=== PATIENT | male | born 1945 | race Caucasian/White ===

== ENCOUNTER 2017-06-12 06:29 | Emergency (ER) | payer OTHER ==
[~2017-06-12] VITALS: Ht 180.3 cm; Wt 122.0 kg
[2017-06-12 06:34] VITALS: TEMP 36.4; Ht 180.3 cm; Wt 122.0 kg
[2017-06-12] MEDS ORDERED: SODIUM CHLORIDE 0.9% 1000ML 500 ML IV STA (06:47)
--- NOTE | 2017-06-12 07:00 | EMERGENCY ROOM VISIT NOTE ---
History Report prepared by Prema: Justine Quinones Under the Supervision of: Dr. Tree Lucio M.D. First contact with patient: 06:46 Chief Complaint: IRREGULAR HEARTBEAT Stated Complaint: RAPID AND IRREGULAR HEART BEAT History of Present Illness The patient is a 72 year old male who presents to the Emergency Room with complaints of a persistent irregular heartbeat that began one day ago. The patient reports that he was out visiting his daughter yesterday in [place] and states that he began noticing an increased heart rate and an irregular beat. He states that he had measured his rate at up to 150 beats per minute. The patient states that anything he did increased his heart rate. He states that 8 years ago he had similar symptoms. The patient states that he previously followed with Dr. Casas for bradycardia. Today, the patient reports discomfort in his chest, but denies any shortness of breath. He denies any increased swelling in his lower extremities. The patient states that he takes 5 mg of Lisinopril twice per day. He denies any personal or family history of DVT or PEs. Source of History: patient Onset: one day ago Position: other (heart) Quality: other (irregular heartbeat) Timing: other (persistent) Associated Symptoms: No SOB Note: Associated Symptoms: chest discomfort Review of Systems See HPI for pertinent positives & negatives. A total of 10 systems reviewed and were otherwise negative. Past Medical & Surgical Medical Problems: (1) Hemorrhoids (2) Hypertension (3) Osteoarthritis Surgical Problems: (1) History of knee surgery (2) Hx of cholecystectomy Family History Diabetes mellitus FH: heart disease FHx: cancer Social History Smoking Status: Former Smoker Alcohol Use: none Drug Use: none Marital Status: Housing Status: lives with family Occupation Status: unemployed Current/Historical Medications Scheduled Apixaban (Eliquis), 5 MG PO BID Lisinopril (Zestril), 5 MG PO BID Metoprolol Tartrate (Lopressor), 1 TAB PO BID Allergies Coded Allergies: Gluten (Verified Allergy, Unknown, abd pain, 06/12/17) Codeine (Verified Adverse Reaction, Unknown, unable to sleep, 06/12/17) Morphine (Verified Adverse Reaction, Unknown, unable to sleep, 06/12/17) Physical Exam Vital Signs Date Time Temp Pulse Resp B/P (MAP) Pulse Ox O2 Delivery O2 Flow Rate FiO2 06/12/17 08:47 78 18 120/86 94 06/12/17 08:29 85 16 119/92 95 Room Air 06/12/17 07:48 73 18 109/63 96 Room Air 06/12/17 07:27 113 127/74 06/12/17 07:15 84 25 113/73 94 06/12/17 07:11 120/88 06/12/17 07:10 96 23 06/12/17 07:09 98 16 127/73 95 06/12/17 06:55 97 Room Air 06/12/17 06:47 121 06/12/17 06:34 36.4 83 20 135/89 94 Room Air Physical Exam GENERAL: Patient is in no acute distress. HEENT: No acute trauma, normocephalic atraumatic, mucous membranes moist, no nasal congestion, no scleral icterus. NECK: No stridor, no adenopathy, no meningismus, trachea is midline. LUNGS: Clear to auscultation bilaterally, no wheeze, no rhonchi, breath sounds equal. HEART: Tachycardic with an irregular rhythm, no murmurs. ABDOMEN: Soft, nontender, bowel sounds positive, no hernias, no peritonitis. EXTREMITIES: No cyanosis or edema, full range of motion of all the joints without pain or difficulty, no signs for acute trauma. NEUROLOGIC: Oriented x 3, no acute motor or sensory deficits, no focal weakness. SKIN: No rash, no jaundice, no diaphoresis. Medical Decision & Procedures ER Provider Diagnostic Interpretation: X-ray results as stated below per interpretation by me and the radiologist: CHEST ONE VIEW PORTABLE CLINICAL HISTORY: Atypical chest pain COMPARISON STUDY: 04/10/2016 FINDINGS: The heart is the upper limits of normal in size. There is no failure. There is no focal pulmonary consolidation. There are no pleural effusions.[ IMPRESSION: No active disease in the chest. Electronically signed by: Jerome House M.D. 06/12/2017 7:39 AM Dictated Date/Time: 06/12/2017 7:39 AM Laboratory Results 06/12/17 06:50 06/12/17 06:50 Test 06/12/17 06:50 Red Blood Count 5.57 M/uL (4.7-6.1) Mean Corpuscular Volume 88.0 fL (80-100) Mean Corpuscular Hemoglobin 30.5 pg (25-34) Mean Corpuscular Hemoglobin Concent 34.7 g/dl (32-36) RDW Standard Deviation 43.1 fL (36.4-46.3) RDW Coefficient of Variation 13.4 % (11.5-14.5) Mean Platelet Volume 8.9 fL (7.4-10.4) Prothrombin Time 10.9 SECONDS (9.0-12.0) Prothromb Time International Ratio 1.0 (0.9-1.1) Activated Partial Thromboplast Time 27.0 SECONDS (21.0-31.0) Partial Thromboplastin Ratio 1.0 Anion Gap 8.0 mmol/L (3-11) Est Creatinine Clear Calc Drug Dose 98.6 ml/min Estimated GFR () 98.5 Estimated GFR (Non- 85.0 BUN/Creatinine Ratio 18.2 (10-20) Calcium Level 8.3 mg/dl (8.5-10.1) Magnesium Level 2.3 mg/dl (1.8-2.4) Total Bilirubin 0.9 mg/dl (0.2-1) Aspartate Amino Transf (AST/SGOT) 21 U/L (15-37) Alanine Aminotransferase (ALT/SGPT) 30 U/L (12-78) Alkaline Phosphatase 80 U/L (45-117) Total Creatine Kinase 122 U/L (39-308) Creatine Kinase MB 2.1 ng/ml (0.5-3.6) Creatine Kinase MB Ratio 1.7 (0-3.0) Troponin I 0.015 ng/ml (0-0.045) Total Protein 7.3 gm/dl (6.4-8.2) Albumin 3.8 gm/dl (3.4-5.0) Globulin 3.5 gm/dl (2.5-4.0) Albumin/Globulin Ratio 1.1 (0.9-2) Thyroid Stimulating Hormone (TSH) 2.420 uIu/ml (0.300-4.500) Laboratory results reviewed by me. Medications Administered Medications (Trade) Dose Ordered Sig/Simon Route Start Time Stop Time Status Last Admin Dose Admin Sodium Chloride 500 ml @ 999 mls/hr Q31M STAT IV 06/12/17 06:47 06/12/17 07:17 DC 06/12/17 06:47 999 MLS/HR Metoprolol Tartrate (Lopressor Iv) 10 mg NOW STAT IV 06/12/17 06:47 06/12/17 06:52 DC 06/12/17 07:27 5 MG Metoprolol Tartrate (Lopressor Tab) 50 mg NOW STAT PO 06/12/17 08:10 06/12/17 08:12 DC 06/12/17 08:26 50 MG Apixaban (Eliquis Tab) 5 mg NOW STAT PO 06/12/17 08:10 06/12/17 08:12 DC 06/12/17 08:27 5 MG ECG Indication: palpitations, tachycardia Rate (beats per minute): 102 Rhythm: atrial fibrillation (with RVR) Findings: no acute ischemic change, no ectopy ED Course 0646: The patient was evaluated in room B12B. A complete history and physical exam was performed. 0647: Ordered Lopressor IV 5 mg IV, Sodium Chloride 500 ml @ 999 mls/hr IV. 0752: I reevaluated the patient and he is resting comfortably. I discussed the exam findings with him and I discussed the treatment plan. He verbalized complete understanding and agreement. Cardiology is going to be consulted. 0802: I discussed the patients case with Dr. Casas, Cardiology. He states that if the patient would like to go home he will see the patient later this week. He states that the patient should be started on Metoprolol and Eliquis. 0806: I reevaluated the patient and he is resting. I discussed the conversation I had with Dr. Casas with the patient. He is in agreement with the set treatment plan. He will be discharged shortly. 0810: Ordered Eliquis Tab 5 mg PO, Lopressor Tab 50 mg PO. Medical Decision The patient is a 72 year old male who presents to the ED with complaints of an irregular heartbeat. Differential diagnoses considered include afib or aflutter , SVT, IA, electrolyte imbalance, anemia, CHF, PVCs. There is a mild leukocytosis, this is likely consistent with the stress of his situation, infection as the cause was felt unlikely. There was no concerning anemia. No significant electrolyte abnormality, kidney failure or hepatitis. The patient appears to be in a euthyroid state. EKG shows a rapid atrial fibrillation, no acute ischemia. Cardiac enzyme testing times one was not consistent with acute cardiac injury. Chest x-ray did not show pneumonia or CHF. No mediastinal widening. There was no coagulopathy. The patient was given IV saline, he received IV Lopressor, 5 mg. His heart rate is now in the 70s or 80s. I spoke with the cigar tobacco rehandler air pollution inspector. The patient is being discharged on Eliquis, metoprolol and close follow-up. The patient was comfortable with discharge and did not want to stay in the hospital but has agreed to return for any worsening symptoms. Prior to discharge, the patient was given oral metoprolol and oral Eliquis. Medication Reconcilliation Current Medication List: was personally reviewed by me Blood Pressure Screening Patient's blood pressure: Elevated blood pressure Blood pressure disposition: Elevated BP felt to be situational, Did not require urgent referral Consults Time Called: 075 Consulting Physician: Dr. Casas, Cardiology Returned Call: 08 I discussed the patients case with Dr. Casas, Cardiology. He states that if the patient would like to go home he will see the patient later this week. He states that the patient should be started on Metoprolol and Eloquis. Impression Primary Impression: Rapid atrial fibrillation Scribe Attestation The scribe's documentation has been prepared under my direction and personally reviewed by me in its entirety. I confirm that the note above accurately reflects all work, treatment, procedures, and medical decision making performed by me. Departure Information Dispostion Home / Self-Care Prescriptions Metoprolol Tartrate (LOPRESSOR) 50 Mg Tab 1 TAB PO BID for 15 Days, #30 TAB 5 Refills Prov: Tree Lucio M.D. 06/12/17 Apixaban (ELIQUIS) 5 Mg Tab 5 MG PO BID for 15 Days, #30 TAB Prov: Tree Lucio M.D. 06/12/17 Referrals No Doctor, Assigned (PCP) Forms HOME CARE DOCUMENTATION FORM, IMPORTANT VISIT INFORMATION Patient Instructions My [facility] Additional Instructions metoprolol 2x daily eliquis 2x daily return for worsening symptoms see cardiology this week--call today for an appt
[2017-06-12 07:08] LABS: MEAN CORPUSCULAR HEMOGLOBIN 30.5 pg (25-34); MEAN CORPUSCULAR HGB CONC 34.7 g/dl (32-36); MEAN PLATELET VOLUME 8.9 fL (7.4-10.4); PLATELET COUNT 248 K/uL (130-400); RED BLOOD COUNT 5.57 M/uL (4.7-6.1); WHITE BLOOD COUNT 10.93 K/uL (4.8-10.8)
[2017-06-12] MEDS: METOPROLOL TARTRATE 1 MG/ML VIAL IV STA ×2 (07:10→07:27)
[2017-06-12 07:16] LABS: PROTHROMBIN TIME (PATIENT) 10.9 SECONDS (9.0-12.0)
[2017-06-12 07:40] LABS: BUN/CREATININE RATIO 18.2 (10-20); CALCIUM 8.3 mg/dl (8.5-10.1); CREATININE 0.9 mg/dl (0.60-1.40); MAGNESIUM 2.3 mg/dl (1.8-2.4); POTASSIUM 3.9 mmol/L (3.5-5.1)
--- NOTE | 2017-06-12 07:40 | DIAGNOSTIC IMAGING REPORT ---
CHEST ONE VIEW PORTABLE CLINICAL HISTORY: Atypical chest pain COMPARISON STUDY: 04/10/2016 FINDINGS: The heart is the upper limits of normal in size. There is no failure. There is no focal pulmonary consolidation. There are no pleural effusions.[ IMPRESSION: No active disease in the chest. Electronically signed by: Jerome House M.D. 06/12/2017 7:39 AM Dictated Date/Time: 06/12/2017 7:39 AM
[2017-06-12 07:51] LABS: ALB/GLOB RATIO 1.1 (0.9-2); CKMB/CK RATIO 1.7 (0-3.0); THYROID STIMULATING HORMONE 2.42 uIu/ml (0.300-4.500)
[2017-06-12] MEDS ORDERED: APIXABAN 2.5 MG TAB PO STA (08:10)
[2017-06-12] MEDS ORDERED: METOPROLOL TARTRATE 50 MG TAB PO STA (08:10)
[2017-06-12] MEDS ORDERED: APIX1TAB3 PO (08:30)
[2017-06-12] MEDS ORDERED: METO-551 PO (08:30)
[2017-06-12 08:47] VITALS: BP 120/86; PULSE 78; O2SAT 94
[2017-06-12] MEDS ORDERED: LISI-729 PO (11:59)
== END 2017-06-12 08:49 | disposition home or self-care (01) ==
LOC: C.EDB 06:32
DX: I48.91 Unspecified atrial fibrillation (principal); M19.90 Unspecified osteoarthritis, unspecified site; I10 Essential (primary) hypertension; Z87.891 Personal history of nicotine dependence; Z90.49 Acquired absence of other specified parts of digestive tract; Z98.890 Other specified postprocedural states; Z83.3 Family history of diabetes mellitus; Z79.01 Long term (current) use of anticoagulants; Z79.899 Other long term (current) drug therapy

== ENCOUNTER 2017-10-10 10:21 | Inpatient (IN) | payer OTHER ==
[2017-09-27 09:32] VITALS: BMI 37.0
--- NOTE | 2017-09-27 10:11 | PAT Medication Instructions ---
Service Date Sep 27, 2017. Current Home Medication List Apixaban (Eliquis), 5 MG PO BID B-Complex Vitamins (Vitamin B Complex), 1 TAB PO QAM Krill Oil (Krill Oil), 1 TAB PO BID Metoprolol Tartrate (Lopressor) (Lopressor), 75 MG PO BID Misc Natural Products (Saw [place]), 1 TAB PO BID Probiotic Product (Probiotic), 1 TAB PO BID [Vitamin D], 1 TAB PO QAM Medication Instructions For Your Scheduled Surgery - Per surgeon and dobie man, to hold Eliquis 3 days prior to surgery (Last doses 10/06/17) Apixaban (Eliquis), 5 MG PO BID - Hold the following medications starting 09/27/17: Misc Natural Products (Saw [place]), 1 TAB PO BID Krill Oil (Krill Oil), 1 TAB PO BID - Hold the following medications the morning of surgery: B-Complex Vitamins (Vitamin B Complex), 1 TAB PO QAM Probiotic Product (Probiotic), 1 TAB PO BID [Vitamin D], 1 TAB PO QAM - Take the following medications the morning of surgery with a sip of water: Metoprolol Tartrate (Lopressor) (Lopressor), 75 MG PO BID - Take the following medications as scheduled the night before surgery: Metoprolol Tartrate (Lopressor) (Lopressor), 75 MG PO BID Probiotic Product (Probiotic), 1 TAB PO BID If you have any questions please call us at [phone] or [phone] or [phone]
[2017-09-27 10:49] LABS: INR 1.1 (0.9-1.1); PTT PATIENT 28.2 SECONDS (21.0-31.0)
[2017-09-27 10:50] LABS: BASO % 1.2 %; BASO ABS # 0.08 K/uL (0-0.2); EOS % 6.6 %; EOS ABS # 0.46 K/uL (0-0.5); HEMATOCRIT 46.4 % (42-52); HEMOGLOBIN 15.9 g/dL (14.0-18.0); IG# 0.03 K/uL (0.00-0.02); LYMPH % 22.4 %; LYMPH ABS # 1.56 K/uL (1.2-3.4); MEAN CELL VOLUME 89.6 fL (80-100); MEAN CORPUSCULAR HEMOGLOBIN 30.7 pg (25-34); MEAN CORPUSCULAR HGB CONC 34.3 g/dl (32-36); MEAN PLATELET VOLUME 9.2 fL (7.4-10.4); MONO % 8.5 %; MONO ABS # 0.59 K/uL (0.11-0.59); NEUT % 60.9 %; NEUT ABS # 4.23 K/uL (1.4-6.5); PLATELET COUNT 225 K/uL (130-400); RED CELL DISTRIBUTION WIDTH CV 13.5 % (11.5-14.5); RED CELL DISTRIBUTION WIDTH SD 44.4 fL (36.4-46.3); WHITE BLOOD COUNT 6.95 K/uL (4.8-10.8)
[2017-09-27 11:44] LABS: BLOOD UREA NITROGEN 20 mg/dl (7-18); CALCIUM 8.8 mg/dl (8.5-10.1); CARBON DIOXIDE 27 mmol/L (21-32); CREATININE 1.04 mg/dl (0.60-1.40); GLUCOSE 93 mg/dl (70-99); POTASSIUM 4.3 mmol/L (3.5-5.1); SODIUM 136 mmol/L (136-145)
--- NOTE | 2017-10-04 18:13 | HISTORY & PHYSICAL EXAMINATION ---
DATE OF ADMISSION: 10/10/2017 CHIEF COMPLAINT: Right knee pain. HISTORY OF PRESENT ILLNESS: A 72-year-old gentleman status post a left knee replacement done by myself back in September 2012, who presents for surgical treatment of his right knee. He has got a long history of right knee pain as well. He has been followed and managed by my partner Dr. Mckay. He has had gel shots/viscosupplementation as well as steroids shots. These have become less successful over time. Pain has become more debilitating affecting his quality of life. He would like to have his right knee replaced. From a medical standpoint he has developed atrial fibrillation on Eliquis, followed by Dr. Casas. PAST MEDICAL HISTORY: 1. Atrial fibrillation. 2. Low back pain/sciatica. PAST SURGICAL HISTORY: 1. Cholecystectomy. 2. Left knee replacement on 09/28/2012. ALLERGIES: STEROIDS, MORPHINE, CODEINE WHICH CAUSES DIFFICULTY SLEEPING. CURRENT MEDICINES: 1. Eliquis 5 mg twice a day. 2. Saw palmetto. 3. Probiotics. 4. Fish oil. 5. Lopressor 50 mg a day. SOCIAL HISTORY: 72-year-old male. He is . Does not smoke. FAMILY HISTORY: Negative for heart disease, diabetes, or blood clots. REVIEW OF SYSTEMS: Negative for diabetes. He does have atrial fibrillation and on Eliquis. Denies any chest pain, no shortness of breath. No history of DVT or PE. PHYSICAL EXAMINATION: GENERAL: Reveals a healthy, pleasant elderly male. He looks to be in good health. HEENT: Benign. NECK: Supple. No lymphadenopathy. LUNGS: Clear to auscultation. HEART: Regular rate and rhythm. ABDOMEN: Soft, nontender, nondistended. EXTREMITIES: Grossly neurovascularly intact except as follows: Examination of the right knee reveals the patient ambulates independently. He has varus alignment to his knee. When he weight bears he has a varus thrust. He has got bony hypertrophy medially. Range of motion is 5-10 degrees short of full extension and 120 degrees of flexion. No instability. No pain with hip motion. X-RAYS: X-rays of the right knee reviewed. It shows advanced right knee DJD. He has complete loss of his medial joint space. He has some tibial femoral subluxation. He has osteophytes in all 3 compartments. Looks like he has a bone infarct in his distal femur as well. ASSESSMENT: A 72-year-old male 5 years out from left knee replacement with advanced right knee degenerative joint disease. He has failed conservative treatment and would like to have his right knee replaced. PLAN: We will take him to the operating room and do a right total knee replacement. The risks and benefits of this procedure were explained to the patient including but not limited to DVT, PE, , infection, neurological injury, vascular injury, bleeding problem, pain, limited range of motion, stiffness, failure to relieve his symptoms, incomplete relief of symptoms, need for further surgery in the future, fracture, leg length inequality, nerve palsy, etc. The patient understands and desires to proceed. Informed consent was obtained. We did talk to him about stopping his Eliquis 3 days preop. We will likely have Dr. Casas follow him in the hospital as well. We will use Eliquis for DVT prophylaxis at a prophylactic dose initially. As far as discharge plans, he should be able to be discharged to home.
[~2017-10-10] VITALS: Ht 180.3 cm; Wt 120.5 kg
[2017-10-10] VITALS (7 sets, daily range): BP systolic 104–148; BP diastolic 68–99; PULSE 60–86; TEMP 36.3–36.7; O2SAT 96–98; Ht 180.3 cm; Wt 120.5 kg
[~2017-10-10 10:21] MED LIST: ACETAMINOPHEN 500 MG TAB PO SCH; APIX1TAB3 PO; B-COTAB18 PO; BUPIVACAINE 0.25% 30 ML VIAL ONE; BUPIVACAINE 0.5 % 5 MG/1 ML PF 10ML VIAL ONE; BUPIVACAINE LIPOSOME 266 MG, BUPIVACAINE/EPINEPHRINE INJ 50 ML, SODIUM CHLORIDE 0.9% PF... INFIL SCH; CEFAZOLIN 3000MG IV PUSH 22.5 ML IV SCH; FAMOTIDINE 20 MG TAB PO SCH; GABAPENTIN 300 MG CAP PO SCH; KRIL1000 PO; LACTATED RINGER'S 1000ML 1,000 ML IV SCH; LACTATED RINGER'S 1000ML 500 ML IV SCH; LACTATED RINGER'S 1000ML IV SCH; METO50TA16 PO; METOCLOPRAMIDE HCL 10 MG TAB PO SCH; MISC1CAP60 PO; MISCCAP80 PO; VITAMIN D PO
--- NOTE | 2017-10-10 10:57 | History & Physical Bridge Note ---
H&P Re-Evaluation Bridge Note: I have examined the patient, reviewed the History & Physical and in the interval since the performance of the History & Physical I have noted the following changes of clinical significance: No changes noted
[2017-10-10] MEDS ORDERED: LIDOCAINE HCL 2% 2 ML VIAL (20MG/ML) ONE (11:09)
[2017-10-10] MEDS ORDERED: MIDAZOLAM HCL 1 MG/ML 2ML VIAL ONE (11:09)
[2017-10-10] MEDS ORDERED: PROPOFOL IV EMULSION 10 MG/ML 20 ML VIAL IV ONE ×2 (11:09→13:43)
[2017-10-10] MEDS ORDERED: BACITRACIN 50000 UNIT VIAL ONE (12:53)
[2017-10-10] MEDS ORDERED: SODIUM CHLORIDE 0.9% PF 50 ML VIAL ONE (12:53)
[2017-10-10] MEDS ORDERED: BUPIVACAINE LIPOSOME 1/3% 266 MG/20 ML VIAL INFIL ONE (12:53)
[2017-10-10] MEDS ORDERED: BUPIVACAINE 0.25% 30 ML VIAL ONE (12:54)
[2017-10-10] MEDS ORDERED: EpINEphrine INJ 1MG/ML AMP 1 MG/ML AMP ONE (12:54)
[2017-10-10] MEDS ORDERED: FENTANYL CITRATE INJ 50 MCG/1 ML 2 ML VIAL ONE (13:21)
[2017-10-10] MEDS ORDERED: ONDANSETRON INJ 2 MG/ML 2 ML VIAL IV PRN ×2 (13:30→15:00)
[2017-10-10] MEDS ORDERED: PHENYLEPHRINE 100MCG/ML 5ML SYR IV PRN (13:30)
[2017-10-10] MEDS ORDERED: HYDROmorphone INJ 2 MG/ML SYR/VIAL IV PRN (13:30)
[2017-10-10] MEDS ORDERED: KETOROLAC TROMETHAMINE 30 MG/ML VIAL IV. PRN (13:30)
[2017-10-10] MEDS ORDERED: ATROPINE SULFATE 0.1 MG/ML 5ML SYR IV PRN (13:30)
[2017-10-10] MEDS ORDERED: EpHEDrine SULFATE INJ 50 MG/ML AMP IV PRN (13:30)
[2017-10-10] MEDS ORDERED: PHENYLEPHRINE HCL INJ 10 MG/ML VIAL ONE (13:36)
[2017-10-10] MEDS ORDERED: ONDANSETRON INJ 2 MG/ML 2 ML VIAL ONE (14:43)
--- NOTE | 2017-10-10 14:55 | [facility] Post Operative Brief Note ---
Immediate Operative Summary Operative Date Oct 10, 2017. Pre-Operative Diagnosis Right Knee Degenerative Joint Disease Post-Operative Diagnosis Same as preop Procedure(s) Performed Right Total Knee Arthroplasty Surgeon Dr. Gibson Personal Financial Planner Surgeon(s) Sidney Killian PA-C Estimated Blood Loss 50 ml Findings Consistent with Post-Op Diagnosis Fluids (cc crystalloids) 1500 cc Specimens A. Right Knee Bone and Tissue Drains None Anesthesia Type MAC Spinal Regional Complication(s) none Disposition Accompanied Pt To Recover: no Disposition: Recovery Room / PACU
[2017-10-10] MEDS ORDERED: MAGNESIUM HYDROXIDE SUSP 30 ML UDC PO PRN (15:00)
[2017-10-10] MEDS ORDERED: HYDROmorphone INJ 0.5 MG/0.5 ML SYR IV PRN (15:00)
[2017-10-10] MEDS ORDERED: SILVER SULFADIAZINE 1% CR 50 GM JAR EXT PRN (15:00)
[2017-10-10] MEDS ORDERED: NO NSAIDS SCH (15:00)
[2017-10-10] MEDS ORDERED: METOCLOPRAMIDE HCL INJ 5 MG/ML 2 ML VIAL IV PRN (15:00)
[2017-10-10] MEDS ORDERED: ZOLPIDEM TARTRATE 5 MG TAB PO PRN (15:00)
[2017-10-10] MEDS ORDERED: ALUMINUM/MAGNESIUM/SIMETH (MAALOX MAX) 30 ML UDC PO PRN (15:00)
[2017-10-10] MEDS ORDERED: BISACODYL 10 MG SUPP PR PRN (15:00)
[2017-10-10] MEDS ORDERED: TAMSULOSIN HCL 0.4 MG CAP PO PRN (15:00)
--- NOTE | 2017-10-10 15:47 | DIAGNOSTIC IMAGING REPORT ---
R KNEE 1 OR 2 VIEWS ROUTINE HISTORY: 72 years-old Male AP/LATERAL IN PACU RIGHT KNEE status post right knee total joint arthroplasty. Degenerative joint disease. COMPARISON: Right knee radiographs 07/25/2017 TECHNIQUE: 2 views of the right knee FINDINGS: Postoperative changes from recent right knee total joint arthroplasty and patella resurfacing. Alignment is satisfactory. Anterior midline skin larry are noted in addition to expected postsurgical soft tissue swelling and deep tissue air. No fracture or retained foreign body identified. Surgical drain is in place. IMPRESSION: Right knee total joint arthroplasty and patellar resurfacing without complication identified. The above report was generated using voice recognition software. It may contain grammatical, syntax or spelling errors. Electronically signed by: Jignesh Singletary M.D. 10/10/2017 3:45 PM Dictated Date/Time: 10/10/2017 3:44 PM
--- NOTE | 2017-10-10 16:02 | Anesthesiology Progress Note ---
Anesthesia Post Op Note Date & Time Oct 10, 2017 at 16:01 Vital Signs Pain Intensity: 0 Vital Signs Past 12 Hours Date Time Temp Pulse Resp B/P (MAP) Pulse Ox O2 Delivery O2 Flow Rate FiO2 10/10/17 15:50 36.2 74 14 119/82 98 Nasal Cannula 2 10/10/17 15:40 71 17 117/79 98 Nasal Cannula 2 10/10/17 15:30 68 15 119/82 97 Nasal Cannula 2 10/10/17 15:20 79 15 117/77 97 Nasal Cannula 2 10/10/17 15:10 89 19 110/74 97 Nasal Cannula 2 10/10/17 15:02 36.5 72 18 116/75 99 Oxymask 10 10/10/17 11:08 36.7 76 18 148/99 97 Room Air Notes Mental Status: alert / awake / arousable, participated in evaluation Pt Amnestic to Procedure: Yes Nausea / Vomiting: adequately controlled Pain: adequately controlled Airway Patency, RR, SpO2: stable & adequate BP & HR: stable & adequate Hydration State: stable & adequate Neuraxial Anesthesia: was administered, sensory block is resolving Anesthetic Complications: no major complications apparent
[2017-10-10] MEDS: D5W AND 1/2NSS + 20MEQ KCL 1,000 ML IV SCH (18:14)
[2017-10-10] MEDS: FERROUS GLUCONATE 324 MG TAB PO SCH (18:19)
[2017-10-10] MEDS: KETOROLAC TROMETHAMINE 15 MG/ML VIAL IV. SCH (18:19)
--- NOTE | 2017-10-10 18:26 | OPERATIVE REPORT ---
DATE OF OPERATION: 10/10/2017 SURGEON STAFF: Jeison Gibson MD. CASTING REPAIRER: RADHA Dubose. PREOPERATIVE DIAGNOSIS: Right knee degenerative joint disease. POSTOPERATIVE DIAGNOSIS: Same. PROCEDURE PERFORMED: Right cemented posterior stabilized total knee arthroplasty. COMPLICATIONS: None. ESTIMATED BLOOD LOSS: 50 mL. FLUID REPLACEMENT: 1500 mL fluid replacement. ANESTHESIA: Spinal with adductor canal block. DRAINS: None. SPECIMENS: Right knee sent for pathology. TOURNIQUET TIME: 61 minutes at 300 mmHg. OPERATIVE INDICATIONS: The patient is a 72-year-old fairly active gentleman who has had a long history of knee problems. He underwent a left knee replacement several years ago with an excellent result. He has developed increased pain and discomfort in his right knee. He failed conservative care. He elected to proceed with total knee arthroplasty. OPERATIVE FINDINGS: Operative findings revealed advanced right knee DJD. Extensive grade 4 changes in all 3 compartments in the medial side. He had eburnation of the medial femoral condyle, the entire condyle and the medial tibial plateau. OPERATIVE IMPLANTS: Operative implants consisted of: 1. Biomet Vanguard size 70 right posterior stabilized femoral component. 2. Biomet size 75 tibial tray. 3. A 12 mm posterior stabilized polyethylene insert. 4. A 34 x 8.5 all poly patella. OPERATIVE PROCEDURE: The patient was taken to the operating room, identified and placed on the operating table in supine position. All contact areas were appropriately padded. IV antibiotics were provided by the anesthesia team. A spinal anesthetic and adductor canal block had been provided in the holding area. A Sanders catheter was placed in sterile fashion. Right thigh tourniquet was then placed. The right lower extremity was then prepped and draped in the usual sterile fashion. The right leg was elevated and exsanguinated with Esmarch and tourniquet was placed at 300 mmHg. An anterior approach to the right knee was then performed though a longitudinal incision centered over the patella. Sharp dissection was carried through the subcutaneous tissues down to the level of the extensor mechanism. A medial parapatellar arthrotomy incision was made. Some subperiosteal dissection was carried out medially. The fat pad was resected from beneath the patellar tendon. The lateral patellofemoral ligament was released. The patella was everted and the knee was flexed. The osteophytes were taken off the distal end of the femur. The ACL and PCL were then released from the distal femur and the tibia subluxated anteriorly. The external tibial alignment jig was then placed in the anterior face of the tibia and adjusted about 16 mm medially. Proximal tibial cut was made to remove about a millimeter of bone from the most deficient aspect of the medial tibial plateau. Some osteophytes were taken off medial and posteromedially. Tibia was sized to a size 75. Attention was then drawn to the femur. The distal femur was entered with a sharp drill. Intramedullary canal was suctioned. A right 6 degree valgus cutting guide was placed. The distal femoral cutting block was pinned in place. Distal femoral cut was made to take an additional 3 mm of bone off the distal femur. The femur was then sized to a size 70. We did downsize this slightly. The AP cutting block was pinned parallel to the epicondylar axis, which was 3 degrees of external rotation. The anterior cut, anterior chamfer cut, posterior cut, posterior chamfer cuts were made. Box cutting guide was placed and adjusted slightly lateral and the box cut was made. The knee was flexed. The remnants of the medial and lateral menisci were excised. The osteophytes were taken off the posterior aspect of the femur. A trial femoral component was placed. Tibial tray was pinned in maximum external rotation and drill and stem punch were used to create defect in proximal tibia for the tibial tray. I then trialed the knee and the 12 mm insert fit most appropriately. It was just a little bit loose and I really want to leave it loose as he had significant flexion contracture and a very stiff knee preoperatively. Attention was then drawn to the patella. The patella was cleaned of all soft tissues. Patella thickness measured 25 mm in thickness and was cut down to 15. It was sized to a size 34 patella. Lug holes were drilled for a 34 patella. Lateral osteophyte was removed. Patella button was placed. Knee was taken through range of motion and the patella tracked nicely with no thumbs test. Attention was then drawn toward placement of the permanent components. All trial components removed. A bone plug was placed in the distal femur to limit blood loss. A double patch of Palacos G cement was mixed. A right size 70 posterior stabilized femoral component, size 75 tibial tray, a 12 mm posterior stabilized polyethylene insert, and a 34 x 8.5 all poly patella then cemented in place. The knee was brought out into full extension until the cement hardened. A final cement check was then performed. Pericapsular tissues were injected with a total of 100 mL of a combination of 20 mL of Exparel, 30 mL of normal saline, and 50 mL of 0.25% Marcaine with epinephrine. The tourniquet was then let down for a final tourniquet time of 61 minutes. Hemostasis was assured with use of electrocautery. Wound was once again irrigated. The extensor mechanism was then closed with a combination of #1 PDS suture and #1 Vicryl suture in a [id number] fashion. The extensor mechanism was checked and found to be intact. Subcutaneous tissues were then closed with 2-0 Dexon suture in a buried interrupted fashion. Skin was closed with skin larry. Leg was then cleaned, dried and a sterile dressing of Xeroform, 4 x 4, sterile cast padding and Aram bandage were applied. The patient was then transferred to the recovery room in stable condition. The patient tolerated the procedure without complications. All needle and sponge counts were correct at the end of the operation. I attest to the content of the Intraoperative Record and any orders documented therein. Any exception s are noted below.
[2017-10-10] MEDS ORDERED: NATURAL PRODUCTS PO SCH (21:00)
[2017-10-10] MEDS: SENNA 8.6 MG TAB PO SCH (21:08)
[2017-10-10] MEDS: DOCUSATE SODIUM 100 MG CAP PO SCH (21:10)
[2017-10-10] MEDS: LACTOBACILLUS ACIDOPHILUS (FLORANEX) TAB PO SCH (21:10)
[2017-10-10] MEDS: METOPROLOL TARTRATE 25 MG TAB PO SCH (21:10)
[2017-10-10] MEDS: ACETAMINOPHEN 500 MG TAB PO SCH (21:11)
[2017-10-10] MEDS: CEFAZOLIN IV 2,000 MG in SYRINGE 0 ML IV SCH (21:18)
[2017-10-11] VITALS (11 sets, daily range): BP systolic 91–133; BP diastolic 59–82; PULSE 70–94; TEMP 36.3–36.8; O2SAT 95–98
[2017-10-11] MEDS: KETOROLAC TROMETHAMINE 15 MG/ML VIAL IV. SCH ×3 (00:36→12:11)
[2017-10-11] MEDS: D5W AND 1/2NSS + 20MEQ KCL 1,000 ML IV SCH ×2 (02:22→09:13)
[2017-10-11] MEDS: CEFAZOLIN IV 2,000 MG in SYRINGE 0 ML IV SCH (05:21)
[2017-10-11] MEDS: ACETAMINOPHEN 500 MG TAB PO SCH ×3 (05:29→21:30)
[2017-10-11 07:53] LABS: HEMATOCRIT 41.1 % (42-52); HEMOGLOBIN 13.8 g/dL (14.0-18.0); MEAN CELL VOLUME 89.2 fL (80-100); MEAN CORPUSCULAR HEMOGLOBIN 29.9 pg (25-34); MEAN CORPUSCULAR HGB CONC 33.6 g/dl (32-36); MEAN PLATELET VOLUME 9.4 fL (7.4-10.4); PLATELET COUNT 221 K/uL (130-400); RED CELL DISTRIBUTION WIDTH CV 13.7 % (11.5-14.5); RED CELL DISTRIBUTION WIDTH SD 44.6 fL (36.4-46.3); WHITE BLOOD COUNT 8.53 K/uL (4.8-10.8)
[2017-10-11 08:27] LABS: CALCIUM 8.2 mg/dl (8.5-10.1); CREATININE 1.06 mg/dl (0.60-1.40); POTASSIUM 4.4 mmol/L (3.5-5.1)
--- NOTE | 2017-10-11 09:07 | Anesthesiology Progress Note ---
Anesthesia Post Op Note Date & Time Oct 11, 2017 at 09:07 Vital Signs Pain Intensity: 0.0 Vital Signs Past 12 Hours Date Time Temp Pulse Resp B/P (MAP) Pulse Ox O2 Delivery O2 Flow Rate FiO2 10/11/17 08:09 97 Room Air 10/11/17 07:51 36.8 84 17 118/70 (86) 97 Room Air 10/11/17 07:30 Room Air 10/11/17 03:11 36.6 70 16 105/73 (84) 98 Room Air 10/11/17 00:35 Room Air 10/10/17 23:14 36.7 63 16 109/72 (84) 96 Room Air Notes Mental Status: alert / awake / arousable, participated in evaluation Pt Amnestic to Procedure: Yes Nausea / Vomiting: adequately controlled Pain: adequately controlled Airway Patency, RR, SpO2: stable & adequate BP & HR: stable & adequate Hydration State: stable & adequate Neuraxial Anesthesia: sensory block resolved Anesthetic Complications: no major complications apparent
[2017-10-11] MEDS: DOCUSATE SODIUM 100 MG CAP PO SCH ×2 (09:10→20:49)
[2017-10-11] MEDS: LACTOBACILLUS ACIDOPHILUS (FLORANEX) TAB PO SCH ×2 (09:11→20:49)
[2017-10-11] MEDS: FERROUS GLUCONATE 324 MG TAB PO SCH ×3 (09:11→17:41)
[2017-10-11] MEDS: METOPROLOL TARTRATE 25 MG TAB PO SCH ×2 (09:11→20:50)
[2017-10-11] MEDS: VITAMIN B COMPLEX TAB PO SCH (09:12)
[2017-10-11] MEDS: PANTOprazole SOD 40 MG TAB PO SCH (09:12)
[2017-10-11] MEDS: CHOLECALCIFEROL 1000 INTER.UNIT TAB PO SCH (09:12)
[2017-10-11] MEDS: MULTIVITAMIN TAB PO SCH (09:12)
[2017-10-11] MEDS: TRAMADOL HCL 50 MG TAB PO PRN ×2 (09:17→20:49)
[2017-10-11] MEDS ORDERED: ACET-24 PO (11:44)
[2017-10-11] MEDS ORDERED: ULT50X PO (11:44)
--- NOTE | 2017-10-11 11:46 | Discharge Instructions ---
Discharge Instructions Date of Service Oct 11, 2017. Admission Reason for Admission: Right Knee Degenerative Joint Disease Discharge Discharge Diagnosis / Problem: Right Knee Replacement Discharge Goals Goal(s): Decrease discomfort, Improve function, Increase independence, Improve disease control, Therapeutic intervention Activity Recommendations Activity Limitations: per Instructions/Follow-up section Weightbearing Status: Right weightbearing . Instructions / Follow-Up Instructions / Follow-Up ACTIVITY RECOMMENDATIONS: Physical Therapy: * You will go to physical therapy three times each week for four to six weeks after your surgery in order to regain your knee range of motion and to retrain your knee to work properly. * It is just as important to make sure you are getting your knee perfectly straight as it is to regain your knee bend. * Taking a pain pill an hour before therapy can help you have a more productive and comfortable therapy session. Home Exercise: * You were shown a series of exercises (heel props, heel slides, etc.) in the hospital. Do these exercises three to four times each day including the exercises you were shown in physical therapy. Walking: * Get up and walk several times each day. For the first four weeks, try not to stand or walk for more than one hour at a time. If you do stand or walk for more than one hour, you will not hurt anything, but your knee and leg will likely swell. * As you feel comfortable, you may change from the walker or crutches to a cane and then to independent walking. MEDICATIONS: New Medicine: * You will likely be taking one or more of these medications: 1. Tramadol - A quick and shorter-acting pain medication. Take one to two tablets every four to six hours to lessen your pain. 2 Eliquis - Thins your blood to lessen the chance of forming a blood clot. * The most common side effects of pain medicine and iron are nausea and constipation. If nausea or constipation is too much of a problem or if you have any questions about your new medicines or doses, call [facility] at . We will try to help you manage these issues. VERY IMPORTANT TO READ AND REVIEW" Pain: * The immediate post-operative period after knee replacement surgery is often quite painful. * You are given a prescription for pain medicine. You should take it, as directed, when you need it, especially before physical therapy and before going to bed. Pain that interferes with sleep is very common and can last several months. * You will likely need pain medicine for the first four to six weeks. It will not stop all of the pain. The pain will lessen and as you feel better, you may change to milder pain medicine such as Tylenol. * The most common side effects of pain medicine are nausea and constipation, so don't take more than you need. SPECIAL CARE INSTRUCTIONS: TEDs/Elastic Stockings: * The white elastic stockings help limit swelling and prevent blood clots from forming in your legs. The more you wear them, the more they work. * Wear them for six weeks after knee replacement surgery and four weeks after partial knee replacement. Prevention of Infection: * Take antibiotics one hour before any dental cleaning, dental work, urological procedure, gastrointestinal procedure or any invasive surgery in order to prevent your new joint from getting infected. * You may get the antibiotics from the doctor performing the procedure or you may call our office at before and we will call in a prescription to the pharmacy of your choice. Things to Watch For: * Drainage from the incision site that occurs more than one week after your surgery. * Severely increased knee/leg pain or swelling. * Increased redness at the incision site. * Fever above 102 degrees Fahrenheit. * Unusual chest pain or shortness of breath. * Unusual pain or burning with urination. Call [facility] at with any of the above problems or if you have any questions about your medicines or recovery. FOLLOW UP VISIT: Make an appointment to see your doctor for approximately two weeks after surgery for a progress check and staple removal by calling the office at . Current Hospital Diet Patient's current hospital diet: Regular Diet, Gluten Free Diet Discharge Diet Recommended Diet: Gluten Free Diet Procedures Procedures Performed: Right Total Knee Arthroplasty Pending Studies Studies pending at discharge: no Medical Emergencies . Who to Call and When: Medical Emergencies: If at any time you feel your situation is an emergency, please call [phone] immediately. . Non-Emergent Contact Non-Emergency issues call your: Surgeon . "Provider Documentation" section prepared by Jeison Gibson. . VTE Core Measure Inpt VTE Proph given/why not?: Other Anticoagulation, T.E.D. Stockings, SCD's
--- NOTE | 2017-10-11 12:18 | PROGRESS NOTE ---
DATE: 10/11/2017 SUBJECTIVE: A 72-year-old gentleman postop day #1 from a right knee replacement. He is doing pretty well. Pain is controlled. No chest pain or shortness of breath. Not feeling dizzy or lightheaded. OBJECTIVE: VITAL SIGNS: Temperature 36.8. Vital signs stable. GENERAL: Physical examination reveals a healthy, pleasant elderly male. He is sitting up in bed and talks to his family. Looks comfortable. LUNGS: Clear to auscultation. HEART: Has a regular rate and rhythm. ABDOMEN: Soft, nontender, and nondistended. EXTREMITIES: Grossly neurovascularly intact except as follows: Examination of the right leg reveals the leg to be well aligned. He can dorsiflex and plantarflex his foot appropriately. He is neurologically intact. LABORATORY DATA: Hemoglobin 13.8. Hematocrit 41.1. Electrolytes are stable. ASSESSMENT: A 72-year-old male with a history of atrial fibrillation postop day 1 from a right total knee replacement, doing well. Pain is controlled. He is neurologically intact. PLAN: 1. DVT prophylaxis including thigh-high TEDs, SCDs, and we will start him back on his Eliquis. We will start at a prophylactic dose 24 hours after surgery and discharge him to home on his normal therapeutic dose. 2. PT/OT. Weightbear as tolerated. Right total knee protocol. 3. Pain control, doing pretty well with current pain regimen. 4. Disposition: Plan to discharge to home and he is going to do outpatient therapy once adequately recovered.
[2017-10-11] MEDS: APIXABAN 2.5 MG TAB PO SCH (17:42)
[2017-10-11] MEDS: SENNA 8.6 MG TAB PO SCH (20:50)
[2017-10-12] MEDS: TRAMADOL HCL 50 MG TAB PO PRN ×2 (02:19→08:32)
[2017-10-12] MEDS: ACETAMINOPHEN 500 MG TAB PO SCH (05:45)
[2017-10-12 07:51] VITALS: BP 113/69; PULSE 92; TEMP 36.6; O2SAT 96
--- NOTE | 2017-10-12 08:06 | PROGRESS NOTE ---
DATE: 10/12/2017 SUBJECTIVE: A 72-year-old gentleman postop day 2 from right knee replacement. He is doing well. His pain is controlled. He is neurologically intact. No chest pain or shortness of breath. Not feeling dizzy or lightheaded. OBJECTIVE: VITAL SIGNS: Temperature 36.8. Vital signs stable. PHYSICAL EXAMINATION: GENERAL: Reveals a healthy pleasant elderly male. He is sitting up in bed and looks quite comfortable this morning. EXTREMITIES: Examination of the right leg reveals the leg to be well aligned. Dressing is clean, dry and intact. No significant drainage. Calf is soft and supple. NEUROLOGIC: He is neurologically intact. ASSESSMENT: A 72-year-old gentleman postop day 2 from right knee replacement, doing well. His pain is controlled. PLAN: 1. DVT prophylaxis including thigh-high TEDs, SCDs, and back on his Eliquis. We will discharge him back on his therapeutic dose. 2. PT/OT. Weight bear as tolerated. Right total knee protocol. 3. Pain control. Doing well with current pain regimen. 4. Disposition: Plan to discharge to home and he is going to do outpatient therapy.
[2017-10-12] MEDS: PANTOprazole SOD 40 MG TAB PO SCH (08:27)
[2017-10-12] MEDS: VITAMIN B COMPLEX TAB PO SCH (08:27)
[2017-10-12] MEDS: MULTIVITAMIN TAB PO SCH (08:27)
[2017-10-12] MEDS: CHOLECALCIFEROL 1000 INTER.UNIT TAB PO SCH (08:27)
[2017-10-12] MEDS: FERROUS GLUCONATE 324 MG TAB PO SCH ×2 (08:27→12:30)
[2017-10-12 10:20] VITALS: TEMP 36.6; O2SAT 96
[2017-10-12] MEDS: APIXABAN 2.5 MG TAB PO SCH (11:07)
[2017-10-12] MEDS: DOCUSATE SODIUM 100 MG CAP PO SCH (11:07)
[2017-10-12] MEDS: LACTOBACILLUS ACIDOPHILUS (FLORANEX) TAB PO SCH (11:07)
[2017-10-12 11:11] VITALS: BP 99/66; PULSE 92
[2017-10-12] MEDS: METOPROLOL TARTRATE 25 MG TAB PO SCH (11:12)
== END 2017-10-12 13:00 | disposition home or self-care (01) | DRG 470 ==
LOC: C.ACU 10:21 → C.3E 10:55 → CANRESERV 15:57 → ENRESERV 15:57
PROVIDERS: ADMIT Orthopaedic Surgery Sports Medicine; ATTEND Orthopaedic Surgery Sports Medicine
PROC: 0SRC0J9 Replacement of Right Knee Joint with Synthetic Substitute, Cemented, Open Approach (ICD-10-PCS; principal; 2017-10-10 12:50)
DX: M17.11 Unilateral primary osteoarthritis, right knee (principal); Z96.652 Presence of left artificial knee joint; I48.91 Unspecified atrial fibrillation; Z79.899 Other long term (current) drug therapy; Z79.01 Long term (current) use of anticoagulants; Z88.8 Allergy status to other drugs, medicaments and biological substances; Z88.5 Allergy status to narcotic agent

== ENCOUNTER 2017-12-30 10:39 | Emergency (ER) | payer OTHER ==
[~2017-12-30] VITALS: Ht 177.8 cm; Wt 122.0 kg
[~2017-12-30 10:39] MED LIST changes: +ACET-24 PO; -ACETAMINOPHEN 500 MG TAB PO SCH; -BUPIVACAINE 0.25% 30 ML VIAL ONE; -BUPIVACAINE 0.5 % 5 MG/1 ML PF 10ML VIAL ONE; -BUPIVACAINE LIPOSOME 266 MG, BUPIVACAINE/EPINEPHRINE INJ 50 ML, SODIUM CHLORIDE 0.9% PF... INFIL SCH; -CEFAZOLIN 3000MG IV PUSH 22.5 ML IV SCH; -FAMOTIDINE 20 MG TAB PO SCH; -GABAPENTIN 300 MG CAP PO SCH; -LACTATED RINGER'S 1000ML 1,000 ML IV SCH; -LACTATED RINGER'S 1000ML 500 ML IV SCH; -LACTATED RINGER'S 1000ML IV SCH; -METOCLOPRAMIDE HCL 10 MG TAB PO SCH; +ULT50X PO
[2017-12-30 10:43] VITALS: TEMP 36.7
[2017-12-30 11:00] VITALS: Ht 177.8 cm; Wt 122.0 kg
--- NOTE | 2017-12-30 11:03 | EMERGENCY ROOM VISIT NOTE ---
History Report prepared by Prema: Gilberto Sethi Under the Supervision of: Dr. Kel Hargrove D.O. First contact with patient: 10:46 Chief Complaint: RESPIRATORY PROBLEMS Stated Complaint: DIFFICULTY BREATHING,LUNGS INFLAMED History of Present Illness The patient is a 72 year old male who presents to the Emergency Room with complaints of worsening dyspnea that began 4 days ago. Patient states that the symptoms are worsened when he lays flat. He states that when he lays flat he "wheezes and gurgles like he is drowning". Patient states that he also has nausea, vomiting, diarrhea, and abdominal pain. He adds that he is sore on the right side of his chest. Patient states that he had similar symptoms 2 months ago. He states that antibiotics were used to resolve that episode. Pertinent past medical history includes atrial fibrillation. Patient states that he takes Eliquis. He denies any fevers, chills, urinary symptoms, or leg swelling. Patient denies a history of blood clots in his lungs. Patient states that his family doctor is in [place]. Patient states that he has used no new medications. He adds that he had his knee worked on 7 months ago. Source of History: patient Onset: 4 days ago Position: other (Lungs) Timing: worsening Modifying Factors (Worsening): other (Lying flat) Associated Symptoms: + chest pain (Sore on right side of chest), + nausea, + vomiting, + abdominal pain, + diarrhea, No fevers, No chills, No urinary symptoms Note: Denies leg swelling. Review of Systems See HPI for pertinent positives & negatives. A total of 10 systems reviewed and were otherwise negative. Past Medical & Surgical Medical Problems: (1) Hemorrhoids (2) Hypertension (3) Osteoarthritis (4) Right Knee DJD Surgical Problems: (1) History of knee surgery (2) Hx of cholecystectomy Family History Diabetes mellitus FH: heart disease FHx: cancer Social History Smoking Status: Never Smoker Alcohol Use: none Drug Use: none Marital Status: Housing Status: lives with family Occupation Status: unemployed Current/Historical Medications Scheduled Albuterol Hfa (Ventolin Hfa), 2 PUFF INH Q6 Apixaban (Eliquis), 5 MG PO BID B-Complex Vitamins (Vitamin B Complex), 1 TAB PO QAM Cholecalciferol (Vitamin D3), 1,000 UNITS PO DAILY Krill Oil (Krill Oil), 1 TAB PO BID Levofloxacin (Levaquin), 500 MG PO DAILY Metoprolol Tartrate (Lopressor) (Lopressor), 25 MG PO BID Misc Natural Products (Saw Epps), 1 TAB PO BID Probiotic Product (Probiotic), 1 TAB PO BID Allergies Coded Allergies: Jackson-related Products (Unverified Allergy, Severe, SHORTNESS OF BREATH, FULL BODY RASH, 12/30/17) Gluten (Verified Allergy, Unknown, abd pain, 12/30/17) Honey (Verified Allergy, Unknown, RASH WITH HONEY,SUGAR,CORN SYRUP, 12/30/17 ) Monosodium Glutamate (Verified Allergy, Unknown, MSG,NITRATES-"AFFECTS EYES", 12/30/17) [place] (Verified Allergy, Unknown, RASH, 12/30/17) Tomato (Verified Allergy, Unknown, RASH, 12/30/17) Codeine (Verified Adverse Reaction, Unknown, unable to sleep, 12/30/17) Morphine (Verified Adverse Reaction, Unknown, unable to sleep, 12/30/17) Physical Exam Vital Signs Date Time Temp Pulse Resp B/P (MAP) Pulse Ox O2 Delivery O2 Flow Rate FiO2 12/30/17 12:33 86 18 120/87 95 Room Air 12/30/17 12:07 90 12/30/17 11:22 95 Room Air 12/30/17 11:00 96 Room Air 12/30/17 10:50 96 Room Air 12/30/17 10:43 36.7 86 20 137/92 96 Room Air Physical Exam GENERAL: Patient is awake, alert, and in no acute distress. Patient is resting comfortably and showing no signs of anxiety EYES: The conjunctivae are clear. The pupils are round and reactive. EARS, NOSE, MOUTH AND THROAT: The nose is without any evidence of any deformity. Mucous membranes are moist tongue is midline NECK: The neck is nontender and supple. RESPIRATORY: Diminished lung sounds noted in both bases. Rales in both bases. CARDIOVASCULAR: Irregular rhythm noted to auscultation. No definite murmur noted to auscultation. GASTROINTESTINAL: The abdomen is soft. Bowel sounds are present in all quadrants. Abdomen is nontender MUSCULOSKELETAL/EXTREMITIES: There is no evidence of gross deformity full range of motion is noted in the hips and shoulders SKIN: Pedal edema bilaterally. There is no obvious evidence of any rash. There are no petechiae, pallor or cyanosis noted. NEUROLOGIC: Patient is awake alert and oriented x3. Medical Decision & Procedures ER Provider Diagnostic Interpretation: Radiology results as stated below per my review and radiologist interpretation: CHEST ONE VIEW PORTABLE CLINICAL HISTORY: 72 years-old Male presenting with EVALUATE RESPIRATORY DISTRESS.DYSPNEA. TECHNIQUE: Portable upright AP view of the chest was obtained. COMPARISON: 07/01/2017. FINDINGS: Atherosclerosis of aortic arch. Cardiac silhouette enlarged. Mild prominence of the main pulmonary artery. No focal opacity. No large effusion or pneumothorax. Degenerative changes of the thoracic spine. Upper abdomen normal. IMPRESSION: 1. Mild cardiomegaly. 2. Mild prominence of the main pulmonary artery, which could suggest elevated pulmonary hypertension. Electronically signed by: Sy Araya M.D. 12/30/2017 11:41 AM Laboratory Results 12/30/17 11:00 Red Blood Count 5.29, Mean Corpuscular Volume 84.7, Mean Corpuscular Hemoglobin 29.1, Mean Corpuscular Hemoglobin Concent 34.4, Mean Platelet Volume 9.0, Neutrophils (%) (Auto) 63.5, Lymphocytes (%) (Auto) 21.5, Monocytes (%) (Auto) 8.6, Eosinophils (%) (Auto) 5.2, Basophils (%) (Auto) 0.9, Neutrophils # (Auto) 3.64, Lymphocytes # (Auto) 1.23, Monocytes # (Auto) 0.49, Eosinophils # (Auto) 0.30, Basophils # (Auto) 0.05 12/30/17 11:00 Test 12/30/17 11:00 White Blood Count 5.73 K/uL (4.8-10.8) Red Blood Count 5.29 M/uL (4.7-6.1) Hemoglobin 15.4 g/dL (14.0-18.0) Hematocrit 44.8 % (42-52) Mean Corpuscular Volume 84.7 fL (80-100) Mean Corpuscular Hemoglobin 29.1 pg (25-34) Mean Corpuscular Hemoglobin Concent 34.4 g/dl (32-36) Platelet Count 259 K/uL (130-400) Mean Platelet Volume 9.0 fL (7.4-10.4) Neutrophils (%) (Auto) 63.5 % Lymphocytes (%) (Auto) 21.5 % Monocytes (%) (Auto) 8.6 % Eosinophils (%) (Auto) 5.2 % Basophils (%) (Auto) 0.9 % Neutrophils # (Auto) 3.64 K/uL (1.4-6.5) Lymphocytes # (Auto) 1.23 K/uL (1.2-3.4) Monocytes # (Auto) 0.49 K/uL (0.11-0.59) Eosinophils # (Auto) 0.30 K/uL (0-0.5) Basophils # (Auto) 0.05 K/uL (0-0.2) RDW Standard Deviation 42.6 fL (36.4-46.3) RDW Coefficient of Variation 13.8 % (11.5-14.5) Immature Granulocyte % (Auto) 0.3 % Immature Granulocyte # (Auto) 0.02 K/uL (0.00-0.02) Prothrombin Time 11.2 SECONDS (9.0-12.0) Prothromb Time International Ratio 1.1 (0.9-1.1) Activated Partial Thromboplast Time 28.0 SECONDS (21.0-31.0) Partial Thromboplastin Ratio 1.1 Anion Gap 5.0 mmol/L (3-11) Est Creatinine Clear Calc Drug Dose 83.3 ml/min Estimated GFR () 81.8 Estimated GFR (Non- 70.6 BUN/Creatinine Ratio 17.1 (10-20) Calcium Level 8.4 mg/dl (8.5-10.1) Total Bilirubin 0.9 mg/dl (0.2-1) Aspartate Amino Transf (AST/SGOT) 32 U/L (15-37) Alanine Aminotransferase (ALT/SGPT) 40 U/L (12-78) Alkaline Phosphatase 83 U/L (45-117) Troponin I < 0.015 ng/ml (0-0.045) Pro-B-Type Natriuretic Peptide 1509 pg/ml (0-900) Total Protein 7.6 gm/dl (6.4-8.2) Albumin 3.8 gm/dl (3.4-5.0) Globulin 3.8 gm/dl (2.5-4.0) Albumin/Globulin Ratio 1.0 (0.9-2) Laboratory results per my review. Medications Administered Medications (Trade) Dose Ordered Sig/Simon Route Start Time Stop Time Status Last Admin Dose Admin Furosemide (Lasix Inj) 40 mg NOW STAT IV 12/30/17 12:17 12/30/17 12:18 DC 12/30/17 12:32 40 MG Levofloxacin (Levaquin Tab) 500 mg NOW STAT PO 12/30/17 12:17 12/30/17 12:18 DC 12/30/17 12:32 500 MG Albuterol (Ventolin Hfa Inhaler) 2 puffs NOW ONCE INH 12/30/17 12:30 12/30/17 12:31 DC 12/30/17 12:33 2 PUFFS ECG Per My Interpretation Indication: SOB/dyspnea Rate (beats per minute): 85 Rhythm: atrial fibrillation Findings: no ectopy, other (No acute ST segments) Comparison ECG Date: 07/01/17 Change: no significant change ED Course 1050: The patient was evaluated in room C1. A complete history and physical examination were performed. 1217: Levaquin Tab 500mg PO and Lasix Inj 40mg IV 1230: Albuterol 2 puffs INH 1303: Upon reevaluation, the patient is resting comfortably. I discussed the results and treatment plan with him. He verbalized agreement of the treatment plan. He was discharged home. Medical Decision Prior records/ancillary studies reviewed. Triage Nursing notes reviewed. The patient's history was concerning for respiratory difficulties. Differential diagnosis: Etiologies such as infections, reactive airway disease, pneumonia, pneumothorax , COPD, CHF, cardiac ischemia, pulmonary embolism, musculoskeletal, gastrointestinal, as well as others were entertained. The patient is a 72-year-old male who presented to the emergency department for shortness of breath and cough. The patient was felt to have bronchitis and was started on prednisone by his family doctor. I discussed the patient's laboratory and radiographic studies with him. He did complain of some orthopnea and at this time I am concerned he may be describing symptoms of CHF or pulmonary edema. He was treated with 1 dose of Lasix IV in the emergency department. I recommended that he continue all medications as prescribed. He was started on an antibiotic and bronchodilator in the event that this represents a bronchitis. He was encouraged to follow-up with his primary care physician for further evaluation as well as echocardiogram. He was also encouraged to return to the emergency department immediately if symptoms change worsen or the need arises. Medication Reconcilliation Current Medication List: was personally reviewed by me Blood Pressure Screening Patient's blood pressure: Normal blood pressure Blood pressure disposition: Did not require urgent referral Impression Primary Impression: Pulmonary edema Additional Impression: Bronchitis Scribe Attestation The scribe's documentation has been prepared under my direction and personally reviewed by me in its entirety. I confirm that the note above accurately reflects all work, treatment, procedures, and medical decision making performed by me. Departure Information Dispostion Home / Self-Care Prescriptions Levofloxacin (Levaquin) 500 Mg Tab 500 MG PO DAILY, #4 TAB Prov: Kel Hargrove, DO 12/30/17 Albuterol Hfa (VENTOLIN HFA) 200 Puffs/[id number] Mcg Aers 2 PUFF INH Q6, #1 INHALER Prov: Kel Hargrove, DO 12/30/17 Referrals No Doctor, Assigned (PCP) Forms HOME CARE DOCUMENTATION FORM, IMPORTANT VISIT INFORMATION, WORK / SCHOOL INSTRUCTIONS Patient Instructions Bronchitis Acute, My [facility] Additional Instructions Continue all medications as prescribed. Rest and avoid any strenuous activity. Call your family doctor to schedule a follow-up appointment for this week. You may require further studies such as an echocardiogram to further evaluate the cause of your symptoms. Return to the emergency department immediately if symptoms change worsen or the need arises. Problem Qualifiers Primary Impression: Pulmonary edema Chronicity: acute Qualified Codes: J81.0 - Acute pulmonary edema
[2017-12-30 11:15] LABS: BASO % 0.9 %; BASO ABS # 0.05 K/uL (0-0.2); EOS % 5.2 %; HEMATOCRIT 44.8 % (42-52); HEMOGLOBIN 15.4 g/dL (14.0-18.0); IG# 0.02 K/uL (0.00-0.02); LYMPH % 21.5 %; LYMPH ABS # 1.23 K/uL (1.2-3.4); MEAN CELL VOLUME 84.7 fL (80-100); MEAN CORPUSCULAR HEMOGLOBIN 29.1 pg (25-34); MEAN CORPUSCULAR HGB CONC 34.4 g/dl (32-36); MONO % 8.6 %; MONO ABS # 0.49 K/uL (0.11-0.59); NEUT % 63.5 %; NEUT ABS # 3.64 K/uL (1.4-6.5); PLATELET COUNT 259 K/uL (130-400); RED CELL DISTRIBUTION WIDTH CV 13.8 % (11.5-14.5); RED CELL DISTRIBUTION WIDTH SD 42.6 fL (36.4-46.3); WHITE BLOOD COUNT 5.73 K/uL (4.8-10.8)
[2017-12-30 11:22] VITALS: O2SAT 95
[2017-12-30 11:28] LABS: INR 1.1 (0.9-1.1)
[2017-12-30 11:32] LABS: ALBUMIN 3.8 gm/dl (3.4-5.0); ALT/SGPT 40 U/L (12-78); AST/SGOT 32 U/L (15-37); BLOOD UREA NITROGEN 18 mg/dl (7-18); CALCIUM 8.4 mg/dl (8.5-10.1); CARBON DIOXIDE 25 mmol/L (21-32); CREATININE 1.05 mg/dl (0.60-1.40); GLUCOSE 96 mg/dl (70-99); POTASSIUM 4.1 mmol/L (3.5-5.1); SODIUM 138 mmol/L (136-145)
[2017-12-30] MEDS ORDERED: METO25TA56 PO (11:32)
[2017-12-30] MEDS ORDERED: CHOL1000 PO (11:32)
[2017-12-30 11:37] LABS: ALKALINE PHOSPHATASE 83 U/L (45-117); TOTAL PROTEIN 7.6 gm/dl (6.4-8.2)
--- NOTE | 2017-12-30 11:42 | DIAGNOSTIC IMAGING REPORT ---
CHEST ONE VIEW PORTABLE CLINICAL HISTORY: 72 years-old Male presenting with EVALUATE RESPIRATORY DISTRESS.DYSPNEA. TECHNIQUE: Portable upright AP view of the chest was obtained. COMPARISON: 07/01/2017. FINDINGS: Atherosclerosis of aortic arch. Cardiac silhouette enlarged. Mild prominence of the main pulmonary artery. No focal opacity. No large effusion or pneumothorax. Degenerative changes of the thoracic spine. Upper abdomen normal. IMPRESSION: 1. Mild cardiomegaly. 2. Mild prominence of the main pulmonary artery, which could suggest elevated pulmonary hypertension. Electronically signed by: Sy Araya M.D. 12/30/2017 11:41 AM Dictated Date/Time: 12/30/2017 11:40 AM
[2017-12-30] MEDS ORDERED: LEVOFLOXACIN 250 MG TAB PO STA (12:17)
[2017-12-30] MEDS ORDERED: FUROSEMIDE 40 MG/4 ML VIAL IV STA (12:17)
[2017-12-30] MEDS ORDERED: LEVO-366 PO (12:24)
[2017-12-30] MEDS ORDERED: VNTHFA/IN INH (12:24)
[2017-12-30] MEDS ORDERED: ALBUTEROL HFA 8 GM INHALER INH ONE (12:30)
[2017-12-30 12:33] VITALS: BP 120/87; PULSE 86; O2SAT 95
== END 2017-12-30 13:00 | disposition home or self-care (01) ==
LOC: C.EDB 10:40 → C.EDC 13:00
DX: J81.1 Chronic pulmonary edema (principal); J40 Bronchitis, not specified as acute or chronic; R60.0 Localized edema; R11.2 Nausea with vomiting, unspecified; R19.7 Diarrhea, unspecified; R10.9 Unspecified abdominal pain; I48.91 Unspecified atrial fibrillation; I10 Essential (primary) hypertension; Z79.01 Long term (current) use of anticoagulants; Z79.899 Other long term (current) drug therapy; Z91.018 Allergy to other foods; Z88.6 Allergy status to analgesic agent